=== PATIENT | male | born 1975 | race Two or more races ===

== ENCOUNTER 2017-01-25 20:44 | Emergency (ER) | payer MEDICAID, OTHER ==
[~2017-01-25] VITALS: Ht 177.8 cm; Wt 81.6 kg
--- NOTE | 2017-01-25 20:55 | NUR ---
BIBSELF TO ED DT SORETHROAT AND COUGH. PATIENT IS AFEBRILE. VSS. ALSO REPORTED BACK RASHES X2 HOURS. VSS
[2017-01-25] MEDS ORDERED: DEXAMETHASONE SOD PHOSPHATE 10 MG/ML VIAL IM ONE (21:30)
[2017-01-25] MEDS ORDERED: DEXAMETHASONE SOD PHOSPHATE 4 MG/ML VIAL ONE (21:30)
[2017-01-25] MEDS ORDERED: DEXAMETHASONE SOD PHOSPHATE 10 MG/ML VIAL ONE (21:32)
[2017-01-25 22:43] VITALS: BP 121/78
--- NOTE | 2017-01-25 22:44 | NUR ---
Patient discharged to home in stable condition. Written and verbal after care instructions given. Patient verbalizes understanding of instruction.
== END 2017-01-25 22:44 | disposition home or self-care (01) ==
LOC: ER 20:48
DX: J20.9 Acute bronchitis, unspecified (principal)
CPT/HCPCS: 71010; 96372; 99283; A4606; J1100; Z7610

== ENCOUNTER 2017-06-29 21:04 | Emergency (ER) | payer OTHER ==
[~2017-06-29] VITALS: Ht 180.3 cm; Wt 86.2 kg
--- NOTE | 2017-06-29 21:56 | NUR ---
PT AMBULATORY TO ER BED 1 C/O MAXIME FOOT PAIN. DENIES TRAUMA. PT AOX3 RR EVEN AND UNLABORED. NO SOB NOTED. NAD NOTED. NO NVD AT THIS TIME. PT GOWNED AND PLACED ON MONITOR WAITING FOR MD COOMBS.
--- NOTE | 2017-06-29 22:32 | NUR ---
RADIOLOGY AT BEDSIDE FOR XR
--- NOTE | 2017-06-29 23:02 | NUR ---
TISHA AT BEDSIDE
[2017-06-29 23:09] LABS: BASOPHILS % (AUTO) 0.3 % (0.0-2.0); EOSINOPHILS # (AUTO) 0.1 /CMM (0.0-0.7); EOSINOPHILS % (AUTO) 1.6 % (0.0-6.0); HEMATOCRIT 39 % (39-51); HEMOGLOBIN 13.4 g/dL (13.5-17.5); LYMPHOCYTES # (AUTO) 2.2 /CMM (0.8-4.8); LYMPHOCYTES % (AUTO) 35.3 % (20.0-44.0); MEAN CORPUSCULAR HEMOGLOBIN 30 PG (26.0-33.0); MEAN CORPUSCULAR HGB CONC 34 g/dl (31.0-36.0); MEAN CORPUSCULAR VOLUME 89 fL (80-96); MONOCYTES # (AUTO) 0.5 /CMM (0.1-1.30); NEUTROPHILS # (AUTO) 3.4 /CMM (1.8-8.9); NEUTROPHILS % (AUTO) 54.8 % (43.0-81.0); PLATELET COUNT (AUTO) 283 /CMM (150-450); RDW COEFFICIENT OF VARIATION 13.4 (11.5-15.0); RED BLOOD CELL COUNT(AUTO) 4.41 MIL/uL (4.5-6.0); WHITE BLOOD COUNT (AUTO) 6.3 K/uL (4.3-11.0)
[2017-06-29 23:19] LABS: CALCIUM, SERUM 8.8 mg/dL (8.5-10.1); POTASSIUM 3.6 mmol/L (3.5-5.1)
[2017-06-29 23:22] LABS: INR 0.9 (0.87-1.13)
[2017-06-29 23:33] LABS: ALBUMIN 3.4 g/dL (3.4-5.0); BILIRUBIN,DIRECT 0.1 mg/dL (0.0-0.2); BILIRUBIN,TOTAL 0.2 mg/dL (0.2-1.0); TOTAL PROTEIN, SERUM 7.1 g/dL (6.4-8.2)
--- NOTE | 2017-06-30 00:03 | NUR ---
DR. PADILLA SPEAKING TO PT REGARDING RESULTS.
--- NOTE | 2017-06-30 00:07 | NUR ---
IV removed. Catheter intact and site benign. Pressure and 4x4 applied to site. No bleeding noted. Patient discharged to home in stable condition. Written and verbal after care instructions given. Patient verbalizes understanding of instruction. ambulatory with a steady gait
[2017-06-30 00:08] VITALS: BP 132/66
== END 2017-06-30 00:09 | disposition home or self-care (01) ==
LOC: ER 21:08
DX: R60.0 Localized edema (principal); M25.571 Pain in right ankle and joints of right foot; M25.572 Pain in left ankle and joints of left foot
CPT/HCPCS: 36415; 73610 ×2; 80048; 80076; 83880; 85025; 85730; 93970; 99285; A4606; Z7610

== ENCOUNTER 2020-01-22 20:36 | Emergency (ER) | payer OTHER ==
[~2020-01-22] VITALS: Ht 172.7 cm; Wt 68.0 kg
--- NOTE | 2020-01-22 20:40 | NUR ---
PT CAME TO THE ER C/O L SIDED ABD PAIN AND BLOATING X 1 DAY. PT AAOX4, VSS, RESPIRATIONS EVEN AND UNLABORED ON RA W/ NAD NOTED. PT CONNECTED TO THE MONITOR AND POX
[2020-01-22] MEDS ORDERED: KETOROLAC TROMETHAMINE 15 MG/ML VIAL ONE (21:39)
[2020-01-22] MEDS ORDERED: ONDANSETRON HCL/PF 4 MG/2 ML VIAL ONE (21:39)
[2020-01-22 21:48] LABS: BASOPHILS % (AUTO) 0.2 % (0.0-2.0); HEMATOCRIT 45 % (39-51); HEMOGLOBIN 15.3 g/dL (13.5-17.5); LYMPHOCYTES # (AUTO) 1.2 /CMM (0.8-4.8); LYMPHOCYTES % (AUTO) 8.8 % (20.0-44.0); MEAN CORPUSCULAR HGB CONC 34 g/dl (31.0-36.0); MEAN CORPUSCULAR VOLUME 90 fL (80-96); MONOCYTES # (AUTO) 0.8 /CMM (0.1-1.30); NEUTROPHILS # (AUTO) 11.3 /CMM (1.8-8.9); PLATELET COUNT (AUTO) 283 /CMM (150-450); RED BLOOD CELL COUNT(AUTO) 5.03 MIL/uL (4.5-6.0); WHITE BLOOD COUNT (AUTO) 13.2 K/uL (4.3-11.0)
[2020-01-22 21:56] LABS: CALCIUM, SERUM 9.4 mg/dL (8.5-10.1); CREATININE 1.3 mg/dL (0.6-1.3)
[2020-01-22] MEDS ORDERED: ONDANSETRON HCL/PF 4 MG/2 ML VIAL IVP ONE (22:00)
[2020-01-22] MEDS ORDERED: KETOROLAC TROMETHAMINE INJ 30 MG/ML VIAL IV ONE (22:00)
[2020-01-22] MEDS ORDERED: IV NS 0.9% 1,000 ML BAG IV ONE (22:00)
--- NOTE | 2020-01-22 22:00 | NUR ---
PT TAKEN TO CT
[2020-01-22 22:01] LABS: ALBUMIN 4.3 g/dL (3.4-5.0); BILIRUBIN,DIRECT 0.1 mg/dL (0.0-0.2); BILIRUBIN,TOTAL 0.6 mg/dL (0.2-1.0)
--- NOTE | 2020-01-22 22:10 | NUR ---
PT BACK FROM CT
[2020-01-22 22:47] LABS: APPEARANCE,URINE CLEAR (CLEAR); BILIRUBIN,URINE NEGATIVE (NEGATIVE); BLOOD, URINE LARGE Ery/uL (NEGATIVE); COLOR,URINE YELLOW (YELLOW); KETONES,URINE NEGATIVE (NEGATIVE); LEUKOCYTE ESTERASE ,URINE NEGATIVE (NEGATIVE); NITRITE, URINE NEGATIVE (NEGATIVE); PROTEIN,URINE NEGATIVE (NEGATIVE); UGLUCOSE NEGATIVE (NEGATIVE); UROBILINOGEN,URINE 0.2 EU/dL (0.2)
--- NOTE | 2020-01-22 23:19 | NUR ---
Patient discharged to home in stable condition. Written and verbal after care instructions given. Patient verbalizes understanding of instruction.IV removed. Catheter intact and site benign. Pressure and 4x4 applied to site. No bleeding noted.
[2020-01-22 23:20] VITALS: BP 151/84
== END 2020-01-22 23:21 | disposition home or self-care (01) ==
LOC: ER 20:45
DX: N23 Unspecified renal colic (principal); R11.2 Nausea with vomiting, unspecified
CPT/HCPCS: 36415; 74176; 80048; 80076; 81001; 83690; 85025; 96361; 96374; 96375; 99284; J1885; J2405; J7030; 81000-TC

== ENCOUNTER 2021-02-15 09:37 | Emergency (ER) | payer OTHER ==
[~2021-02-15] VITALS: Ht 172.7 cm; Wt 86.2 kg
[2021-02-15 09:52] VITALS: BP 148/92
[2021-02-15 10:26] LABS: BASOPHILS # (AUTO) 0.3 K/uL (0.0-0.2); BASOPHILS % (AUTO) 2.5 % (0.0-2.0); EOSINOPHILS % (AUTO) 0.7 % (0.0-6.0); HEMATOCRIT 44 % (39-51); HEMOGLOBIN 14.8 g/dL (13.5-17.5); LYMPHOCYTES # (AUTO) 2.3 K/uL (0.8-4.8); LYMPHOCYTES % (AUTO) 21.9 % (20.0-44.0); MEAN CORPUSCULAR HGB CONC 34 g/dl (31.0-36.0); MEAN CORPUSCULAR VOLUME 90 fL (80-96); MONOCYTES # (AUTO) 1.2 K/uL (0.1-1.30); NEUTROPHILS # (AUTO) 6.8 K/uL (1.8-8.9); NEUTROPHILS % (AUTO) 63.9 % (43.0-81.0); PLATELET COUNT (AUTO) 260 K/uL (150-450); RED BLOOD CELL COUNT(AUTO) 4.93 MIL/uL (4.5-6.0); WHITE BLOOD COUNT (AUTO) 10.6 K/uL (4.3-11.0)
[2021-02-15] MEDS ORDERED: IBUPROFEN 600 MG TABLET PO ONE (10:30)
[2021-02-15] MEDS ORDERED: HYDROCODONE/APAP 5/325MG TABLET PO ONE (10:30)
[2021-02-15 10:32] LABS: CREATININE 1.1 mg/dL (0.6-1.3)
[2021-02-15 10:38] LABS: ALBUMIN 3.9 g/dL (3.4-5.0); TOTAL PROTEIN, SERUM 7.6 g/dL (6.4-8.2)
[2021-02-15] MEDS ORDERED: IBUPROFEN 600 MG TABLET ONE (10:38)
[2021-02-15] MEDS ORDERED: HYDROCODONE/APAP 5/325MG TABLET ONE (10:41)
[2021-02-15] MEDS ORDERED: LIDOCAINE HCL/PF 1% 30 ML VIAL TP ONE (11:00)
[2021-02-15 11:06] LABS: URIC ACID 4.7 mg/dL (2.6-7.2)
[2021-02-15] MEDS ORDERED: LIDOCAINE 4% PF AMPUL 40 MG/ML AMPUL ONE (11:11)
[2021-02-15] MEDS ORDERED: LIDOCAINE 1% INJ 50 ML MDV IJ ONE (11:12)
[2021-02-15] MEDS ORDERED: ACETAMINOPHEN ES 500 MG TABLET PO ONE (12:00)
[2021-02-15] MEDS ORDERED: ACETAMINOPHEN ES 500 MG TABLET ONE (12:20)
[2021-02-15] MEDS ORDERED: TRAM50TA2 PO (13:04)
[2021-02-15] MEDS ORDERED: COLC0.6T67 PO (13:04)
[2021-02-15] MEDS ORDERED: PRED50TA PO (13:04)
--- NOTE | 2021-02-15 14:00 | NUR ---
ANKLE JOINT ASPIRATION DONE BY DR HOWELL,TOLERATED WELL
--- NOTE | 2021-02-15 14:01 | NUR ---
PATIENT LEFT WITHOUT WAITING FOR ACI AND RX
== END 2021-02-15 14:02 | disposition left against medical advice (07) ==
LOC: ER 09:41
DX: M25.571 Pain in right ankle and joints of right foot (principal); M10.9 Gout, unspecified; Z60.2 Problems related to living alone
CPT/HCPCS: 20605; 36415; 73610; 80053; 84550; 85025; 87070; 89051; 89060; 99284; A6403; J3490 ×2

== ENCOUNTER 2021-09-21 23:12 | Emergency (ER) | payer OTHER ==
[~2021-09-21] VITALS: Ht 175.3 cm; Wt 86.2 kg
[~2021-09-21 23:12] MED LIST: COLC0.6T67 PO; PRED50TA PO; TRAM50TA2 PO
[2021-09-21] MEDS ORDERED: PSEUDOEPHEDRINE HCL 30 MG TABLET PO ONE (23:30)
[2021-09-21] MEDS ORDERED: PSEUDOEPHEDRINE HCL 30 MG TABLET ONE (23:30)
[2021-09-21] MEDS ORDERED: GUAIFENESIN LA 600 MG TABLET.SA PO ONE ×2 (23:30)
--- NOTE | 2021-09-21 23:59 | NUR ---
XRAY AT BEDSIDE
--- NOTE | 2021-09-22 01:05 | NUR ---
PT REPORTED COVID POSITIVE BY THE LAB
[2021-09-22] MEDS ORDERED: paxlovid PO (01:09)
[2021-09-22] MEDS ORDERED: GUAI1TBM19 PO (01:09)
[2021-09-22] MEDS ORDERED: PSEU120T83 PO (01:09)
[2021-09-22] MEDS ORDERED: BENZ-13 PO (01:09)
[2021-09-22 01:16] VITALS: BP 140/77
--- NOTE | 2021-09-22 01:16 | NUR ---
Patient discharged to home in stable condition. Written and verbal after care instructions given. Patient verbalizes understanding of instruction.
== END 2021-09-22 01:16 | disposition home or self-care (01) ==
LOC: ER 23:23
DX: U07.1 COVID-19 (principal)
CPT/HCPCS: 71045; 87426; 87804; 99284; C9803